=== PATIENT | female | born 1965 | race Hispanic/Latino ===

== ENCOUNTER 2019-10-01 17:44 | Emergency (ER) | payer BC ==
[~2019-10-01 17:44] MED LIST: ALBU8.5H8 IH; ARIP20TA PO; ASPI-1012 PO; ATEN1TAB3 PO; ATOR40TA71 PO; AZIT250T9 PO; FLUO20CA30 PO; GABA600T10 PO; HYDR-3830 PO; LISI10TA7 PO; METF-444 PO; MONT10TA24 PO; ONDA-104 PO; PIOG15TA66 PO; PRAZ1CAP5 PO; PRED20B PO; TIZA4TAB5 PO
[2019-10-01 18:16] LABS: BASOPHILS % (AUTO) 0.4 % (0.0-5.0); EOSINOPHILS % (AUTO) 1.5 % (0.0-8.0); HEMATOCRIT 37.7 % (36-48); MEAN CORPUSCULAR HEMOGLOBIN 27.2 pg (27.0-33.0); MEAN CORPUSCULAR HGB CONC 32.4 g/dL (32.0-36.0); MONOCYTES % (AUTO) 8.4 % (3.0-13.0); NEUTROPHILS % (AUTO) 66.3 % (40.0-77.0); PLATELET COUNT (AUTO) 493 K/uL (130-400); RED BLOOD CELL COUNT(AUTO) 4.49 MIL/uL (4.00-5.50); RED CELL DISTRIBUTION WIDTH 13.3 % (11.0-15.5); WHITE BLOOD COUNT (AUTO) 13.8 K/uL (4.8-10.8)
[2019-10-01] MEDS ORDERED: SODIUM CHLORIDE 0.9% 1000ML 1,000 ML IV ONE (18:18)
[2019-10-01 18:30] LABS: CREATININE 0.8 mg/dL (0.5-1.5); POTASSIUM 3.6 mmol/L (3.5-5.1)
[2019-10-01] MEDS ORDERED: IPRATROPIUM/ALBUTEROL SULFATE 3 ML SOLUTION IH ONE ×2 (18:31→18:53)
[2019-10-01 18:33] LABS: INR 0.98 (0.85-1.15); PARTIAL THROMBOPLASTIN TIME 28.4 SEC (26.3-35.5); PROTHROMBIN TIME 10.3 SEC (9.6-11.6)
[2019-10-01 18:35] LABS: ALBUMIN 3.1 g/dL (3.5-5.0); BILIRUBIN,DIRECT 0.1 mg/dL (0.0-0.3); BILIRUBIN,TOTAL 0.3 mg/dL (0.2-1.0); TOTAL PROTEIN, SERUM 7.8 g/dL (6.0-8.3)
[2019-10-01 18:44] LABS: ABG BASE EXCESS 2.9 mmol/L (-2.0-3.0); ABG HCO3 27.8 mmol/L (21.0-28.0); ABG OXYGEN SATURATION 90.7 % (95.0-99.0); ABG PCO2 43 mmHg (32-45)
[2019-10-01] MEDS ORDERED: METHYLPREDNISOLONE SOD SUCC 125MG/2ML VIAL ONE (18:58)
[2019-10-01 19:40] LABS: APPEARANCE,URINE SLIGHTLY CLOUDY (CLEAR); BILIRUBIN,URINE NEGATIVE (NEGATIVE); COLOR,URINE YELLOW (YELLOW); GLUCOSE, URINE (UA) NEGATIVE (NEGATIVE); KETONES,URINE NEGATIVE (NEGATIVE); LEUKOCYTE ESTERASE ,URINE TRACE (NEGATIVE); NITRATE,URINE NEGATIVE (NEGATIVE); OCCULT BLOOD,URINE NEGATIVE (NEGATIVE); PROTEIN,URINE TRACE mg/dL (NEGATIVE); UROBILINOGEN,URINE 0.2 mg/dL (0.2-1.0)
[2019-10-01 19:47] LABS: BACTERIA,URINE Few /HPF (None Seen); MUCUS,URINE Few LPF (None Seen); SQUAMOUS EPITHELIAL CELL,UR Few /HPF (0-2)
== END 2019-10-01 20:29 | disposition home or self-care (01) ==
LOC: EDH 17:44
DX: J45.901 Unspecified asthma with (acute) exacerbation (principal); J18.8 Other pneumonia, unspecified organism; E78.5 Hyperlipidemia, unspecified; I10 Essential (primary) hypertension; E11.9 Type 2 diabetes mellitus without complications; Z88.2 Allergy status to sulfonamides; Z88.6 Allergy status to analgesic agent
CPT/HCPCS: 36415; 36600; 71045; 80048; 80076; 81001; 82550; 82803; 83605; 84145; 84484; 85025; 85610; 85730; 87040; 87088; 87804 ×2; 93005; 94640 ×2; 96374; 99285; J2930; J7030

== ENCOUNTER 2022-01-28 17:38 | Emergency (ER) | payer BC ==
[~2022-01-28] VITALS: Ht 147.3 cm; Wt 91.2 kg
[~2022-01-28 17:38] MED LIST changes: +LISI10TA24 PO; -LISI10TA7 PO; +MONT-39 PO; -MONT10TA24 PO; +TIZA-211 PO; -TIZA4TAB5 PO
[2022-01-28 18:16] LABS: BASOPHILS % (AUTO) 0.2 % (0.0-5.0); EOSINOPHILS % (AUTO) 2.6 % (0.0-8.0); HEMATOCRIT 34.5 % (36-48); MEAN CORPUSCULAR HEMOGLOBIN 25.5 pg (27.0-33.0); MEAN CORPUSCULAR HGB CONC 32.2 g/dL (32.0-36.0); MEAN CORPUSCULAR VOLUME 79.3 fL (79-99); MONOCYTES % (AUTO) 7.3 % (3.0-13.0); NEUTROPHILS % (AUTO) 63.5 % (40.0-77.0); PLATELET COUNT (AUTO) 408 K/uL (130-400); RED BLOOD CELL COUNT(AUTO) 4.35 MIL/uL (4.00-5.50); RED CELL DISTRIBUTION WIDTH 15.7 % (11.0-15.5); WHITE BLOOD COUNT (AUTO) 11.2 K/uL (4.8-10.8)
[2022-01-28 18:25] LABS: CREATININE 1.1 mg/dL (0.5-1.5); POTASSIUM 5.4 mmol/L (3.5-5.1)
[2022-01-28] MEDS ORDERED: ONDANSETRON 4MG INJ IVP ONE (18:30)
[2022-01-28] MEDS ORDERED: DICYCLOMINE HCL 10 MG/5 ML ML PO ONE (18:30)
[2022-01-28] MEDS ORDERED: MAG/ALUM/SIMETH 30 ML UDCUP PO ONE (18:30)
[2022-01-28] MEDS ORDERED: FAMOTIDINE 20MG VIAL IV ONE (18:30)
[2022-01-28] MEDS ORDERED: LIDOCAINE HCL 2% VISCOUS 15 ML UDCUP PO ONE (18:30)
[2022-01-28 18:32] LABS: ALBUMIN 3.3 g/dL (3.5-5.0); BILIRUBIN,TOTAL 0.4 mg/dL (0.2-1.0); TOTAL PROTEIN, SERUM 7.3 g/dL (6.0-8.3)
[2022-01-28 18:41] LABS: APPEARANCE,URINE Clear (CLEAR); BILIRUBIN,URINE Negative (NEGATIVE); COLOR,URINE Yellow (YELLOW); GLUCOSE, URINE (UA) Negative (NEGATIVE); KETONES,URINE Negative (NEGATIVE); LEUKOCYTE ESTERASE ,URINE Negative (NEGATIVE); NITRATE,URINE Negative (NEGATIVE); OCCULT BLOOD,URINE Negative (NEGATIVE); PROTEIN,URINE Negative (NEGATIVE); UROBILINOGEN,URINE 0.2 mg/dL (0.2-1.0)
[2022-01-28] MEDS ORDERED: SODIUM ZIRCONIUM CYCLOSILICATE 5 GM POWD.PACK PO SCH (19:00)
[2022-01-28] MEDS ORDERED: LACT10PA5 PO (19:21)
[2022-01-28 19:51] VITALS: BP 124/70
== END 2022-01-28 19:59 | disposition home or self-care (01) ==
LOC: EDH 17:38
DX: R10.11 Right upper quadrant pain (principal); E87.5 Hyperkalemia; R79.89 Other specified abnormal findings of blood chemistry; E11.9 Type 2 diabetes mellitus without complications; K21.9 Gastro-esophageal reflux disease without esophagitis; E78.00 Pure hypercholesterolemia, unspecified; I10 Essential (primary) hypertension; Z88.2 Allergy status to sulfonamides; Z88.6 Allergy status to analgesic agent; Z79.899 Other long term (current) drug therapy; Z79.82 Long term (current) use of aspirin; Z79.84 Long term (current) use of oral hypoglycemic drugs; Z90.49 Acquired absence of other specified parts of digestive tract; Z98.890 Other specified postprocedural states
CPT/HCPCS: 36415; 71045; 76705; 80053; 81003; 83690; 84484; 85025; 96374; 96375; 99285; J2405; J3490

== ENCOUNTER 2022-06-28 12:04 | Emergency (ER) | payer BC ==
[~2022-06-28] VITALS: Ht 149.9 cm; Wt 87.5 kg
[~2022-06-28 12:04] MED LIST changes: +LACT10PA5 PO
[2022-06-28 13:12] LABS: BASOPHILS % (AUTO) 0.5 % (0.0-5.0); EOSINOPHILS % (AUTO) 1.9 % (0.0-8.0); HEMATOCRIT 33.8 % (36-48); MEAN CORPUSCULAR HEMOGLOBIN 25.1 pg (27.0-33.0); MEAN CORPUSCULAR VOLUME 78.6 fL (79-99); MONOCYTES % (AUTO) 6.3 % (3.0-13.0); PLATELET COUNT (AUTO) 333 K/uL (130-400); RED CELL DISTRIBUTION WIDTH 14.2 % (11.0-15.5); WHITE BLOOD COUNT (AUTO) 10.1 K/uL (4.8-10.8)
[2022-06-28 13:22] LABS: CREATININE 1.2 mg/dL (0.5-1.5); POTASSIUM 4.5 mmol/L (3.5-5.1)
[2022-06-28 13:27] LABS: ALBUMIN 3.5 g/dL (3.5-5.0); TOTAL PROTEIN, SERUM 7.4 g/dL (6.0-8.3)
[2022-06-28 13:30] VITALS: BP 126/76
[2022-06-28] MEDS ORDERED: TRAM50TA2 PO (14:06)
== END 2022-06-28 14:13 | disposition home or self-care (01) ==
LOC: EDH 12:04
DX: G56.91 Unspecified mononeuropathy of right upper limb (principal); M19.90 Unspecified osteoarthritis, unspecified site; E11.9 Type 2 diabetes mellitus without complications; E78.00 Pure hypercholesterolemia, unspecified; I10 Essential (primary) hypertension; Z88.2 Allergy status to sulfonamides; Z88.6 Allergy status to analgesic agent; Z79.899 Other long term (current) drug therapy; Z79.82 Long term (current) use of aspirin; Z79.84 Long term (current) use of oral hypoglycemic drugs; Z90.49 Acquired absence of other specified parts of digestive tract
CPT/HCPCS: 36415; 70450; 80053; 84484; 85025; 93005

== ENCOUNTER 2022-10-28 20:16 | Inpatient (IN) | payer BC ==
[~2022-10-28] VITALS: Ht 149.9 cm; Wt 91.9 kg
[~2022-10-28 20:16] MED LIST changes: +TRAM50TA2 PO
[2022-10-28 20:50] LABS: BASOPHILS % (AUTO) 0.3 % (0.0-5.0); EOSINOPHILS % (AUTO) 0.7 % (0.0-8.0); HEMATOCRIT 32.2 % (36-48); LYMPHOCYTES % (AUTO) 17.9 % (21.0-51.0); MEAN CORPUSCULAR HEMOGLOBIN 27.2 pg (27.0-33.0); MEAN CORPUSCULAR HGB CONC 32.9 g/dL (32.0-36.0); MEAN CORPUSCULAR VOLUME 82.8 fL (79-99); MONOCYTES % (AUTO) 6.3 % (3.0-13.0); NEUTROPHILS % (AUTO) 74.4 % (40.0-77.0); PLATELET COUNT (AUTO) 278 K/uL (130-400); RED BLOOD CELL COUNT(AUTO) 3.89 MIL/uL (4.00-5.50); RED CELL DISTRIBUTION WIDTH 17.3 % (11.0-15.5); WHITE BLOOD COUNT (AUTO) 21.1 K/uL (4.8-10.8)
[2022-10-28 20:55] LABS: APPEARANCE,URINE CLEAR (CLEAR); BILIRUBIN,URINE NEGATIVE (NEGATIVE); COLOR,URINE COLORLESS (YELLOW); GLUCOSE, URINE (UA) >=1000 mg/dL (NEGATIVE); KETONES,URINE NEGATIVE (NEGATIVE); LEUKOCYTE ESTERASE ,URINE NEGATIVE Leu/uL (NEGATIVE); NITRATE,URINE NEGATIVE (NEGATIVE); OCCULT BLOOD,URINE NEGATIVE (NEGATIVE); PROTEIN,URINE NEGATIVE (NEGATIVE); UROBILINOGEN,URINE 0.2 mg/dL (0.2-1.0)
[2022-10-28 20:56] LABS: BACTERIA,URINE RARE /HPF (None Seen); MUCUS,URINE RARE LPF (None Seen); RBC,URINE 0-1 /HPF (0-1); SQUAMOUS EPITHELIAL CELL,UR RARE /HPF (0-2); WBC,URINE 0-1 /HPF (0-1)
[2022-10-28] MEDS ORDERED: ONDANSETRON 4MG INJ IVP ONE (21:00)
[2022-10-28] MEDS ORDERED: MORPHINE 4 MG SYG IM ONE (21:00)
[2022-10-28] MEDS ORDERED: 0.9%NACL 1000ML 1,000 ML IV ONE ×2 (21:00→21:30)
[2022-10-28 21:07] LABS: CREATININE 1.3 mg/dL (0.5-1.5); POTASSIUM 4.9 mmol/L (3.5-5.1)
[2022-10-28 21:19] LABS: ALBUMIN 3.2 g/dL (3.5-5.0); TOTAL PROTEIN, SERUM 7.3 g/dL (6.0-8.3)
[2022-10-28] MEDS ORDERED: ZOSYN 3.375GM +NS 50ML IVPB ONE (21:30)
[2022-10-28 22:13] LABS: ABG BASE EXCESS -5.1 mmol/L (-2.0-3.0); ABG HCO3 21.1 mmol/L (21.0-28.0); ABG OXYGEN SATURATION 93.6 % (95.0-99.0); ABG PCO2 43 mmHg (32-45)
[2022-10-28] MEDS ORDERED: GLUCAGON 1MG KIT 1 MG ML IM PRN (22:30)
[2022-10-28] MEDS ORDERED: ONDANSETRON 4MG INJ IVP PRN (22:30)
[2022-10-28] MEDS ORDERED: ACETAMINOPHEN 325 MG TAB PO PRN (22:30)
[2022-10-28] MEDS ORDERED: DEXTROSE 50%-WATER 50 ML DISP.SYRIN IV PRN (22:30)
[2022-10-28 22:55] LABS: HEMOGLOBIN A1C 7.8 % (4.0-6.0)
[2022-10-28] MEDS: LEVOFLOXACIN 500 MG/D5W 100 ML 100 ML IV SCH (22:58)
[2022-10-28] MEDS: 0.9%NACL 1000ML 1,000 ML IV SCH (22:58)
[2022-10-28] MEDS ORDERED: LIRA0.6P SQ (23:23)
[2022-10-28] MEDS ORDERED: INSU100V12 SQ (23:23)
[2022-10-28] MEDS ORDERED: INSNOV SQ (23:23)
[2022-10-28] MEDS ORDERED: JANUMET PO (23:23)
[2022-10-28] MEDS ORDERED: AZIL40TA PO (23:23)
[2022-10-28 23:35] VITALS: BP 137/64
[2022-10-29] MEDS: MORPHINE 2 MG SYG IVP PRN ×3 (02:58→23:05)
[2022-10-29 03:52] VITALS: BP 130/65
[2022-10-29 05:22] LABS: BASOPHILS % (AUTO) 0.3 % (0.0-5.0); EOSINOPHILS % (AUTO) 1.4 % (0.0-8.0); HEMATOCRIT 30.1 % (36-48); LYMPHOCYTES % (AUTO) 18.6 % (21.0-51.0); MEAN CORPUSCULAR HEMOGLOBIN 26.4 pg (27.0-33.0); MEAN CORPUSCULAR HGB CONC 31.6 g/dL (32.0-36.0); MEAN CORPUSCULAR VOLUME 83.6 fL (79-99); MONOCYTES % (AUTO) 7.3 % (3.0-13.0); NEUTROPHILS % (AUTO) 71.8 % (40.0-77.0); PLATELET COUNT (AUTO) 259 K/uL (130-400); RED CELL DISTRIBUTION WIDTH 17.4 % (11.0-15.5); WHITE BLOOD COUNT (AUTO) 19.1 K/uL (4.8-10.8)
[2022-10-29] MEDS: METRONIDAZOLE 500MG/100ML BAG 100 ML IVPB SCH ×3 (05:32→22:11)
[2022-10-29 05:38] LABS: ALBUMIN 2.8 g/dL (3.5-5.0); CREATININE 0.9 mg/dL (0.5-1.5); POTASSIUM 4.9 mmol/L (3.5-5.1); TOTAL PROTEIN, SERUM 6.5 g/dL (6.0-8.3)
[2022-10-29] MEDS ORDERED: INSULIN HUMULIN R 100 UNIT/ML 3ML SQ SCH (07:30)
[2022-10-29 08:00] VITALS: BP 128/73
[2022-10-29] MEDS: PANTOPRAZOLE 40 MG/VIAL IVP SCH (08:20)
[2022-10-29] MEDS: ENOXAPARIN SODIUM 40 MG/0.4 ML SYRINGE SQ SCH (08:20)
[2022-10-29] MEDS: 0.9%NACL 1000ML 1,000 ML IV SCH ×2 (10:50→22:36)
[2022-10-29 12:00] VITALS: BP 128/70
[2022-10-29] MEDS: INSULIN HUMULIN R 100 UNIT/ML 3ML SQ SCH ×2 (12:12→16:27)
[2022-10-29 16:40] VITALS: BP 119/65
[2022-10-29 20:08] VITALS: BP 144/66
[2022-10-29] MEDS: LEVOFLOXACIN 500 MG/D5W 100 ML 100 ML IV SCH (23:03)
[2022-10-29 23:41] VITALS: BP 143/84
[2022-10-30] MEDS: METRONIDAZOLE 500MG/100ML BAG 100 ML IVPB SCH (05:17)
[2022-10-30] MEDS: 0.9%NACL 1000ML 1,000 ML IV SCH ×2 (05:17→21:33)
[2022-10-30 05:18] LABS: BASOPHILS % (AUTO) 0.3 % (0.0-5.0); EOSINOPHILS % (AUTO) 2.6 % (0.0-8.0); HEMATOCRIT 30.3 % (36-48); LYMPHOCYTES % (AUTO) 19.4 % (21.0-51.0); MEAN CORPUSCULAR HEMOGLOBIN 26.6 pg (27.0-33.0); MEAN CORPUSCULAR VOLUME 85.8 fL (79-99); MONOCYTES % (AUTO) 6.5 % (3.0-13.0); NEUTROPHILS % (AUTO) 70.8 % (40.0-77.0); PLATELET COUNT (AUTO) 243 K/uL (130-400); RED BLOOD CELL COUNT(AUTO) 3.53 MIL/uL (4.00-5.50); RED CELL DISTRIBUTION WIDTH 17.3 % (11.0-15.5); WHITE BLOOD COUNT (AUTO) 13.4 K/uL (4.8-10.8)
[2022-10-30 05:25] VITALS: BP 141/68
[2022-10-30 05:42] LABS: CREATININE 0.7 mg/dL (0.5-1.5); POTASSIUM 4.5 mmol/L (3.5-5.1)
[2022-10-30 06:27] LABS: CRP QUANTITATIVE 254.2 mg/L (0.00-9.0)
[2022-10-30] MEDS: INSULIN HUMULIN R 100 UNIT/ML 3ML SQ SCH ×5 (06:34→21:38)
[2022-10-30 07:50] VITALS: BP 125/67
[2022-10-30] MEDS: PANTOPRAZOLE 40 MG/VIAL IVP SCH (09:51)
[2022-10-30] MEDS: ENOXAPARIN SODIUM 40 MG/0.4 ML SYRINGE SQ SCH (09:51)
[2022-10-30] MEDS: MAGNESIUM 2GM PREMIX 50ML 50 ML IV SCH ×2 (09:52→13:33)
[2022-10-30 11:05] VITALS: BP 126/73
[2022-10-30] MEDS ORDERED: 0.9%NACL 50ML IV SCH (13:30)
[2022-10-30] MEDS: ZOSYN 3.375GM +NS 50ML IVPB SCH ×2 (13:32→21:33)
[2022-10-30 14:04] LABS: % IRON SATURATION 12.4 % (22-44)
[2022-10-30 15:45] VITALS: BP 154/92
[2022-10-30 20:00] VITALS: BP 140/82
[2022-10-31] VITALS: BP 141/81
[2022-10-31 04:00] VITALS: BP 152/75
[2022-10-31] MEDS: ZOSYN 3.375GM +NS 50ML IVPB SCH ×3 (05:37→22:16)
[2022-10-31 05:56] LABS: BASOPHILS % (AUTO) 0.5 % (0.0-5.0); HEMATOCRIT 31.3 % (36-48); LYMPHOCYTES % (AUTO) 28.7 % (21.0-51.0); MEAN CORPUSCULAR HEMOGLOBIN 26.9 pg (27.0-33.0); MEAN CORPUSCULAR HGB CONC 31.9 g/dL (32.0-36.0); MEAN CORPUSCULAR VOLUME 84.1 fL (79-99); MONOCYTES % (AUTO) 4.7 % (3.0-13.0); NEUTROPHILS % (AUTO) 62.7 % (40.0-77.0); PLATELET COUNT (AUTO) 291 K/uL (130-400); RED BLOOD CELL COUNT(AUTO) 3.72 MIL/uL (4.00-5.50)
[2022-10-31 06:07] LABS: CREATININE 0.7 mg/dL (0.5-1.5); POTASSIUM 4.6 mmol/L (3.5-5.1)
[2022-10-31] MEDS: INSULIN HUMULIN R 100 UNIT/ML 3ML SQ SCH ×4 (06:31→22:17)
[2022-10-31] MEDS ORDERED: INSULIN HUMULIN R 100 UNIT/ML 3ML SQ SCH (07:30)
[2022-10-31 07:55] VITALS: BP 148/84
[2022-10-31] MEDS ORDERED: INSULIN GLARGINE 100 UNITS/ML 10 ML VIAL SQ SCH (08:00)
[2022-10-31] MEDS: 0.9%NACL 1000ML 1,000 ML IV SCH ×2 (10:10→23:11)
[2022-10-31] MEDS: PANTOPRAZOLE 40 MG/VIAL IVP SCH (10:11)
[2022-10-31] MEDS: ENOXAPARIN SODIUM 40 MG/0.4 ML SYRINGE SQ SCH (10:11)
[2022-10-31 11:55] VITALS: BP 139/78
[2022-10-31 20:00] VITALS: BP 145/70
[2022-11-01] VITALS: BP 145/78
[2022-11-01 04:00] VITALS: BP 138/66
[2022-11-01] MEDS: ZOSYN 3.375GM +NS 50ML IVPB SCH (05:38)
[2022-11-01] MEDS: INSULIN HUMULIN R 100 UNIT/ML 3ML SQ SCH (06:36)
[2022-11-01] MEDS ORDERED: INSULIN HUMULIN R 100 UNIT/ML 3ML SQ SCH (07:30)
[2022-11-01] MEDS ORDERED: ALBUTEROL INHALER 90MCG/INH IH PRN (07:30)
[2022-11-01 08:00] VITALS: BP 148/88
[2022-11-01] MEDS ORDERED: INSULIN GLARGINE 100 UNITS/ML 10 ML VIAL SQ SCH (08:00)
[2022-11-01] MEDS ORDERED: FLUOXETINE HCL 20 MG CAPSULE PO SCH (09:00)
[2022-11-01] MEDS ORDERED: PIOGLITAZONE 15MG TAB PO SCH (09:00)
[2022-11-01] MEDS ORDERED: [UNRECOGNIZED DRUG - OTHER] PO SCH (09:00)
[2022-11-01] MEDS ORDERED: TIZANIDINE HCL 2 MG TABLET PO SCH (09:00)
[2022-11-01] MEDS: PANTOPRAZOLE 40 MG/VIAL IVP SCH (09:13)
[2022-11-01] MEDS: ENOXAPARIN SODIUM 40 MG/0.4 ML SYRINGE SQ SCH (09:14)
[2022-11-01] MEDS ORDERED: METR-172 PO (10:00)
[2022-11-01] MEDS: 0.9%NACL 1000ML 1,000 ML IV SCH (10:51)
[2022-11-01] MEDS ORDERED: PRAZOSIN 1 MG PO SCH (21:00)
[2022-11-01] MEDS ORDERED: ARIPIPRAZOLE 5 MG TABLET PO SCH (21:00)
[2022-11-03] MEDS ORDERED: LEVO-70 PO (19:37)
== END 2022-11-01 11:15 | disposition home or self-care (01) | DRG 872 ==
LOC: EDH 20:16 → EDHIP 22:26 → 3DH 23:02
PROVIDERS: ADMIT Hospitalist; ATTEND Hospitalist
DX: A41.9 Sepsis, unspecified organism (principal); K57.32 Diverticulitis of large intestine without perforation or abscess without bleeding; E87.1 Hypo-osmolality and hyponatremia; Z68.41 Body mass index [BMI] 40.0-44.9, adult; D50.9 Iron deficiency anemia, unspecified; I10 Essential (primary) hypertension; E66.01 Morbid (severe) obesity due to excess calories; F32.A Depression, unspecified; M19.90 Unspecified osteoarthritis, unspecified site; B96.89 Other specified bacterial agents as the cause of diseases classified elsewhere; E11.65 Type 2 diabetes mellitus with hyperglycemia; E78.00 Pure hypercholesterolemia, unspecified; F41.9 Anxiety disorder, unspecified; Z79.4 Long term (current) use of insulin; Z83.3 Family history of diabetes mellitus; Z90.710 Acquired absence of both cervix and uterus
CPT/HCPCS: 36415; 36600; 74176; 80048; 80053; 81001; 82803; 82948; 83036; 83540; 83550; 83605; 83690; 83735; 84145; 84484; 85025; 85651; 86140; 87040; 87077; 87186; 93005; C9113; G0378; J1650; J1815; J1956; J2270; J2405; J2543; J3475; J3490; J7030

== ENCOUNTER 2023-01-28 06:54 | Emergency (ER) | payer BC ==
[~2023-01-28] VITALS: Ht 147.3 cm; Wt 91.6 kg
[~2023-01-28 06:54] MED LIST changes: -ASPI-1012 PO; -ATEN1TAB3 PO; -ATOR40TA71 PO; +AZIL40TA PO; -AZIT250T9 PO; -GABA600T10 PO; -HYDR-3830 PO; +INSNOV SQ; +INSU100V12 SQ; +JANUMET PO; -LACT10PA5 PO; +LEVO-70 PO; +LIRA0.6P SQ; -LISI10TA24 PO; -METF-444 PO; +METR-172 PO; -MONT-39 PO; -ONDA-104 PO; -PRED20B PO; -TRAM50TA2 PO
[2023-01-28 07:41] LABS: BASOPHILS % (AUTO) 0.3 % (0.0-5.0); EOSINOPHILS % (AUTO) 3.2 % (0.0-8.0); LYMPHOCYTES % (AUTO) 22.2 % (21.0-51.0); MEAN CORPUSCULAR HEMOGLOBIN 28.1 pg (27.0-33.0); MEAN CORPUSCULAR HGB CONC 32.6 g/dL (32.0-36.0); MONOCYTES % (AUTO) 8.3 % (3.0-13.0); NEUTROPHILS % (AUTO) 65.5 % (40.0-77.0); PLATELET COUNT (AUTO) 323 K/uL (130-400); RED BLOOD CELL COUNT(AUTO) 4.42 MIL/uL (4.00-5.50); RED CELL DISTRIBUTION WIDTH 14.5 % (11.0-15.5); WHITE BLOOD COUNT (AUTO) 11.2 K/uL (4.8-10.8)
[2023-01-28 07:56] LABS: ALBUMIN 3.3 g/dL (3.5-5.0); CREATININE 0.9 mg/dL (0.5-1.5); POTASSIUM 4.4 mmol/L (3.5-5.1); TOTAL PROTEIN, SERUM 7.6 g/dL (6.0-8.3)
[2023-01-28] MEDS ORDERED: SOLU-MEDROL 125MG VIAL IVP ONE (08:00)
[2023-01-28] MEDS ORDERED: ALBUTEROL 0.083% 2.5 MG/3 ML INH IH ONE ×3 (08:00→09:00)
[2023-01-28] MEDS ORDERED: IPRATROPIUM 0.5 MG/2.5 ML INH IH ONE (09:00)
[2023-01-28] MEDS ORDERED: AUD IH (09:04)
[2023-01-28] MEDS ORDERED: PRED50TA2 PO (09:05)
[2023-01-28] MEDS ORDERED: ALBUHFA IH (09:05)
[2023-01-28] MEDS ORDERED: AZIT250T9 PO (09:05)
[2023-01-28] MEDS ORDERED: NEBU-305 MC (09:06)
[2023-01-28 09:18] VITALS: BP 149/71
== END 2023-01-28 09:44 | disposition home or self-care (01) ==
LOC: EDH 06:54
DX: J20.9 Acute bronchitis, unspecified (principal); I10 Essential (primary) hypertension; E11.9 Type 2 diabetes mellitus without complications; E66.9 Obesity, unspecified; E78.00 Pure hypercholesterolemia, unspecified; I21.9 Acute myocardial infarction, unspecified; J44.0 Chronic obstructive pulmonary disease with (acute) lower respiratory infection; M19.90 Unspecified osteoarthritis, unspecified site; Z79.84 Long term (current) use of oral hypoglycemic drugs; Z79.899 Other long term (current) drug therapy; Z90.49 Acquired absence of other specified parts of digestive tract; Z98.890 Other specified postprocedural states; Z88.2 Allergy status to sulfonamides; Z88.6 Allergy status to analgesic agent
CPT/HCPCS: 99284; 96374; 71045; 84484; 80053; 83880; 85025; 36415; 93005; 94640 ×2; J2930